=== PATIENT | female | born 1980 | race American Indian/Alaskan Native ===

== ENCOUNTER 2020-04-04 12:47 | Emergency (ER) | payer SELFPAY ==
[2020-04-04 12:58] VITALS: BP 136/100
--- NOTE | 2020-04-04 13:02 | Emergency Department Report ---
Blank Doc - Documentation Documentation: This is a 39-year-old female that presents with generalized body aches, blurry vision and feeling fatigue. Patient stated she has been taking steroids and her glucose levels is high. Patient stated she feels much better as of Covid symptoms. 1- This initial assessment/diagnostic orders/clinical plan/ treatment(s) is/are subject to change based on pt's health status, clinical progression and re- assessment by fellow clinical providers in the ED. Further treatment and workup at subsequent clinical provers discretion. Patient/guardians urged not to elope from ED as their condition may be serious if not clinically assessed and managed. 2-labs
[2020-04-04 14:26] LABS: Red Blood Count 4.69 M/mm3 (3.65-5.03)
[2020-04-04 14:27] LABS: Hematocrit 41.4 % (30.3-42.9); Hemoglobin 13.2 gm/dl (10.1-14.3); Mean Corpuscular HGB Conc 32 % (30-34); Mean Corpuscular Volume 88 fl (79-97); Platelet Count 251 K/mm3 (140-440); Red Cell Distribution Width 15.1 % (13.2-15.2)
[2020-04-04 14:34] LABS: Alanine Aminotransferase 26 units/L (7-56); Albumin 3.7 g/dL (3.9-5); BUN/Creatinine Ratio 18; Blood Urea Nitrogen 14 mg/dL (7-17); Calcium 8.9 mg/dL (8.4-10.2); Hemolysis Index 12
[2020-04-04 14:35] LABS: Lymphocytes % (Auto) 13.8 % (13.4-35.0); Monocytes % (Auto) 3.6 % (0.0-7.3)
[2020-04-04 14:36] LABS: Basophils # (Auto) 0.1 K/mm3 (0.0-0.1); Basophils % (Auto) 0.4 % (0.0-1.8); Eosinophils % (Auto) 0.1 % (0.0-4.3); Lymphocytes # (Auto) 1.8 K/mm3 (1.2-5.4); Monocytes # (Auto) 3.6 K/mm3 (0.0-0.8)
[2020-04-04] MEDS ORDERED: INSULIN REGULAR, HUMAN 100 UNITS/1 ML IV ONE (14:45)
[2020-04-04] MEDS ORDERED: SODIUM CHLORIDE 0.9% 1000 ML 1,000 ML IV ONE (14:45)
--- NOTE | 2020-04-04 14:51 | Emergency Department Report ---
- General Chief complaint: Hyperglycemia Stated complaint: COVID/SONIYA/HIGH GLUOSE Time Seen by Provider: 04/04/20 12:48 Source: patient Mode of arrival: Ambulatory Limitations: No Limitations - History of Present Illness Initial comments: 39-year-old female, diagnosed with COVID-19 approximately 3 weeks ago. Patient states during that time she had cough, shortness of breath, O2 sats would dip into the 80s. She went to an urgent care and was diagnosed with Covid pneumonia. She was given Rocephin and discharged with azithromycin, prednisone, and an albuterol inhaler. Patient states she also tested positive for flu B at the time as well. Symptoms from the flu and Covid have improved. She denies any shortness of breath at this time. However, patient states over the last couple of days she has been feeling generally weak. She called her physician, who recommended that she check her blood glucose. Patient states she checked it and it read high, so she came to the emergency room. She reports history of gestational diabetes only. MD Complaint: generalized weakness -: days(s) (3) Location: generalized Severity: moderate Consistency: constant Improves with: none Worsens with: none Context: new medication - Related Data Previous Rx's Medication Instructions Recorded Last Taken Type metFORMIN [Glucophage] 500 mg PO BID #60 tablet 04/04/20 Unknown Rx Allergies Allergy/AdvReac Type Severity Reaction Status Date / Time codeine Allergy Unknown Verified 04/04/20 12:57 ED Review of Systems ROS: Stated complaint: COVID/SONIYA/HIGH GLUOSE Other details as noted in HPI Comment: All other systems reviewed and negative Constitutional: weakness. denies: fever Respiratory: cough. denies: shortness of breath Gastrointestinal: denies: vomiting, diarrhea ED Past Medical Hx - Past Medical History Previous Medical History?: Yes Hx Diabetes: Yes - Medications Home Medications: Home Medications Medication Instructions Recorded Confirmed Last Taken Type metFORMIN [Glucophage] 500 mg PO BID #60 tablet 04/04/20 Unknown Rx ED Physical Exam - General Limitations: No Limitations General appearance: alert, in no apparent distress - Head Head exam: Present: atraumatic, normocephalic - Eye Eye exam: Present: normal appearance, EOMI - ENT ENT exam: Present: mucous membranes moist - Neck Neck exam: Present: normal inspection - Respiratory Respiratory exam: Present: normal lung sounds bilaterally. Absent: respiratory distress - Cardiovascular Cardiovascular Exam: Present: normal rhythm, tachycardia - GI/Abdominal GI/Abdominal exam: Present: soft. Absent: distended, tenderness - Extremities Exam Extremities exam: Present: normal inspection - Neurological Exam Neurological exam: Present: alert, oriented X3 - Psychiatric Psychiatric exam: Present: normal affect, normal mood - Skin Skin exam: Present: warm, dry, intact, normal color ED Course Vital Signs 04/04/20 04/04/20 12:51 19:00 Temperature 97.6 F Pulse Rate 130 H 88 Respiratory 19 17 Rate Blood Pressure 136/100 O2 Sat by Pulse 96 97 Oximetry ED Medical Decision Making - Lab Data Result diagrams: 04/04/20 13:11 04/04/20 13:11 - Medical Decision Making Hyperglycemia. Patient not in DKA. IV fluids and insulin administered. Repeat glucose is 200. She is feeling much better at this time and is okay with discharge home. Patient will be discharged with prescription for Metformin. Advised to follow-up with her PCP. Patient reports she is finished with her course of steroids. Return precautions given. Critical care attestation.: If time is entered above; I have spent that time in minutes in the direct care of this critically ill patient, excluding procedure time. ED Disposition Clinical Impression: Hyperglycemia, COVID-19 Disposition: -01 TO HOME OR SELFCARE Is pt being admited?: No Condition: Stable Instructions: Hyperglycemia, [id number], Blood Glucose Monitoring, Adult Prescriptions: metFORMIN [Glucophage] 500 mg PO BID #60 tablet Referrals: PRIMARY CARE, [Primary Care Provider] - 3-5 Days Time of Disposition: 18:21
[2020-04-04 16:57] LABS: Bilirubin,Urine NEG (Negative); Blood,Urine NEG (Negative); Color,Urine Straw (Yellow); Protein,Urine <15 mg/dL mg/dL (Negative); Urobilinogen,Urine < 2.0 mg/dL (<2.0); WBC,Urine < 1.0 /HPF (0.0-6.0)
== END 2020-04-04 19:00 | disposition home or self-care (01) ==
LOC: ED 12:47
DX: U07.1 COVID-19 (principal); E11.65 Type 2 diabetes mellitus with hyperglycemia; Z88.8 Allergy status to other drugs, medicaments and biological substances
CPT/HCPCS: 36415; 80053; 81001; 82805; 82962; 84703; 85025; 96361; 96374; 99283; J7030; J1815